=== PATIENT | male | born 1980 | race Caucasian/White ===

== ENCOUNTER 2021-03-03 12:21 | Emergency (ER) | payer OTHER ==
[2021-03-03] MEDS ORDERED: CLINDAMYCIN 600MG/D5W 600 MG/50 ML BAG IV ONE (15:58)
[2021-03-03] MEDS ORDERED: VANCOMYCIN 1 GM/VIAL ONE (15:58)
[2021-03-03] MEDS ORDERED: NA CHLORIDE 0.9% 250 ML ONE (16:32)
[2021-03-03 16:44] LABS: Absolute Lymphocytes (CBC) 1.8 K/uL (0.7-4.9); Basophils % 1.3 % (0-1.3); Hematocrit 45.5 % (39.6-49.0); Lymphocytes % 27.3 % (15.3-44.8); MPV 7.7 fL (7.6-11.3); RBC Red Blood Cell Count 4.93 M/uL (4.33-5.43)
[2021-03-03 16:49] LABS: ALT/SGPT 48 U/L (12-78); AST/SGOT 38 U/L (15-37); Albumin 3.9 g/dL (3.4-5.0); Alkaline Phosphatase 83 U/L (45-117); BUN Blood Urea Nitrogen 14 mg/dL (7-18); Bicarbonate 28 mmol/L (21-32); Bilirubin Total 0.2 mg/dL (0.2-1.0); Glucose Level 99 mg/dL (74-106); Potassium 3.7 mmol/L (3.5-5.1); Protein, Total 7.9 g/dL (6.4-8.2); Sodium Level 141 mmol/L (136-145)
--- NOTE | 2021-03-03 18:28 | ER ---
Nurse's Notes [facility] Name: Jerry Melchor Age: 40 yrs Sex: Male : 1980 Arrival Date: 03/03/2021 Time: 12:25 Bed 15 Private MD: Diagnosis: Methicillin resistant Staphylococcus aureus infection, unspecified site Presentation: 03/03 12:59 Chief complaint: Patient states: Had swab done last week for a staph infection. Was ca1 called by my doctor today and instructed to come in the ER to start IV antinbiotics. Coronavirus screen: Client denies travel out of the [place] in the last 14 days. At this time, the client does not indicate any symptoms associated with coronavirus-19. Ebola Screen: Patient negative for fever greater than or equal to 101.5 degrees Fahrenheit, and additional compatible Ebola Virus Disease symptoms Patient denies exposure to infectious person. Patient denies travel to an Ebola-affected area in the 21 days before illness onset. No symptoms or risks identified at this time. Initial Sepsis Screen: Does the patient meet any 2 criteria? No. Patient's initial sepsis screen is negative. Does the patient have a suspected source of infection? No. Patient's initial sepsis screen is negative. Risk Assessment: Do you want to hurt yourself or someone else? Patient reports no desire to harm self or others. Onset of symptoms was March 03, 2021. 12:59 Method Of Arrival: Ambulatory ca1 12:59 Acuity: EMILY 3 ca1 Triage Assessment: 15:11 General: Appears in no apparent distress. Behavior is calm, cooperative, appropriate tr6 for age. Pain:. 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 Flu vaccine is not up to date. - Social history:: Smoking status: Patient reports the use of cigarette tobacco products, smokes one pack cigarettes per day. Patient/guardian denies using alcohol, street drugs, The patient lives with family. - Family history:: not pertinent. Screenin:01 Abuse screen: Denies threats or abuse. Denies injuries from another. Nutritional tr6 screening: No deficits noted. Tuberculosis screening: No symptoms or risk factors identified. Fall Risk None identified. Assessment: 15:00 General: Appears in no apparent distress. comfortable, well groomed, Behavior is calm, tr6 cooperative, appropriate for age, Denies fever, feeling ill, fatigue, chills. Pain: Complains of pain in inside left nostril. pt reports he had an ingrown hair that he tried to pluck out and it got infected. Neuro: No deficits noted. Cardiovascular: No deficits noted. Respiratory: No deficits noted. GI: No deficits noted. : No deficits noted. EENT: Nares with drainage noted on left. Derm: No deficits noted. Musculoskeletal: No deficits noted. 15:10 Reassessment: MD Patterson at bedside. tr6 17:17 Reassessment: pt OOB to bathroom independently. tr6 18:30 Reassessment: Patient appears in no apparent distress at this time. No changes from tr6 previously documented assessment. Patient is alert, oriented x 3, equal unlabored respirations, skin warm/dry/pink. pt in no distress. IV antibiotics completed. pending discharge paperwork. Vital Signs: 12:59 BP 132 / 85; Pulse 87; Resp 16 S; Temp 97.1(TE); Pulse Ox 99% on R/A; Weight 82.55 kg ca1 (R); Height 6 ft. 1 in. (185.42 cm) (R); Pain 6/10; 17:12 BP 126 / 82; Pulse 68; Resp 12; Pulse Ox 100% ; tr6 12:59 Body Mass Index 24.01 (82.55 kg, 185.42 cm) ca1 ED Course: 12:25 Patient arrived in ED. ds1 13:03 Triage completed. ca1 13:03 Arm band placed on right wrist. ca1 15:01 Domenica Cohen, CINTHYA is Primary Nurse. tr6 15:01 Debbie Patterson MD is Attending Physician. ma2 15:10 Patient has correct armband on for positive identification. Bed in low position. Call tr6 light in reach. Side rails up X 1. Pulse ox on. NIBP on. Door closed. Warm blanket given. 15:46 No provider procedures requiring assistance completed. tr6 15:46 Inserted saline lock: 18 gauge in right antecubital area, using aseptic technique. tr6 17:33 CMP Sent. sv 17:33 CBC with Diff Sent. sv 18:31 IV discontinued, intact, bleeding controlled, No redness/swelling at site. Pressure tr6 dressing applied. Administered Medications: 15:44 Drug: Clindamycin 600 mg Route: IVPB; Infused Over: 30 mins; Site: right antecubital; tr6 18:30 Follow up: IV Status: Completed infusion; IV Intake: 50ml tr6 16:23 Drug: vancoMYCIN 1 grams Route: IVPB; Infused Over: 2 hrs; Site: right antecubital; pm1 18:31 Follow up: Response: No adverse reaction; IV Status: Completed infusion; IV Intake: tr6 250ml Intake: 18:30 IV: 50ml; Total: 50ml. tr6 18:31 IV: 250ml; Total: 300ml. tr6 Outcome: 18:27 Discharge ordered by . ma2 18:31 Discharged to home ambulatory. tr6 18:31 Condition: good 18:31 Discharge instructions given to patient, Instructed on discharge instructions, follow up and referral plans. no drinking with medication, medication usage, safety practices, Demonstrated understanding of instructions, follow-up care, medications. 18:39 Patient left the ED. tr6 Signatures: Lexy Mabry RN RN Trupti Lindsey ds1 Chance Mas NP ERP MANAGER pm1 Debbie Patterson MD MD ma2 Acob, Cheryl, RN RN Domenica Jason RN RN tr6
--- NOTE | 2021-03-03 18:28 | EDPHYS ---
Physician Documentation [facility] Name: Jerry Melchor Age: 40 yrs Sex: Male : 1980 Arrival Date: 03/03/2021 Time: 12:25 Bed 15 Private MD: ED Physician Debbie Patterson HPI: 03/03 15:29 This 40 yrs old Male presents to ER via Ambulatory with complaints of ma2 Abnormal Lab Results. 15:29 Onset: The symptoms/episode began/occurred gradually, 6 day(s) ago. Associated signs ma2 and symptoms: Pertinent negatives: chest pain, ear ache, lightheadedness. Severity of symptoms: At their worst the symptoms were very mild in the emergency department the symptoms have improved. patient has ingrowing nasal hair that was swapped and cultured and grew mrsa that is sensitive to vancomycin and clindamycin. He was sent here by his CONTINUOUS IMPROVEMENT DIRECTOR for IV antibiotics. of note he did not fail outpatient management as he has received cipro/erythromycine and both are resistant. despite that, his symptoms has improved and he has no fever or any other symptoms. his exam is unremarkable . 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 Flu vaccine is not up to date. - Social history:: Smoking status: Patient reports the use of cigarette tobacco products, smokes one pack cigarettes per day. Patient/guardian denies using alcohol, street drugs, The patient lives with family. - Family history:: not pertinent. ROS: 15:29 Constitutional: Negative for fever, chills, and weight loss. ma2 15:29 All other systems are negative. Exam: 15:29 Constitutional: This is a well developed, well nourished patient who is awake, alert, ma2 and in no acute distress. Head/Face: Normocephalic, atraumatic. Eyes: Pupils equal round and reactive to light, extra-ocular motions intact. Lids and lashes normal. Conjunctiva and sclera are non-icteric and not injected. Cornea within normal limits. Periorbital areas with no swelling, redness, or edema. ENT: Nares patent. No nasal discharge, no septal abnormalities noted. Tympanic membranes are normal and external auditory canals are clear. Oropharynx with no redness, swelling, or masses, exudates, or evidence of obstruction, uvula midline. Mucous membranes moist. Neck: Trachea midline, no thyromegaly or masses palpated, and no cervical lymphadenopathy. Supple, full range of motion without nuchal rigidity, or vertebral point tenderness. No Meningismus. Chest/axilla: Normal chest wall appearance and motion. Nontender with no deformity. No lesions are appreciated. Cardiovascular: Regular rate and rhythm with a normal S1 and S2. No gallops, murmurs, or rubs. Normal PMI, no JVD. No pulse deficits. Respiratory: Lungs have equal breath sounds bilaterally, clear to auscultation and percussion. No rales, rhonchi or wheezes noted. No increased work of breathing, no retractions or nasal flaring. Abdomen/GI: Soft, non-tender, with normal bowel sounds. No distension or tympany. No guarding or rebound. No evidence of tenderness throughout. MS/ Extremity: Pulses equal, no cyanosis. Neurovascular intact. Full, normal range of motion. Neuro: Awake and alert, GCS 15, oriented to person, place, time, and situation. Cranial nerves II-XII grossly intact. Motor strength 5/5 in all extremities. Sensory grossly intact. Cerebellar exam normal. Normal gait. Vital Signs: 12:59 BP 132 / 85; Pulse 87; Resp 16 S; Temp 97.1(TE); Pulse Ox 99% on R/A; Weight 82.55 kg ca1 (R); Height 6 ft. 1 in. (185.42 cm) (R); Pain 6/10; 17:12 BP 126 / 82; Pulse 68; Resp 12; Pulse Ox 100% ; tr6 12:59 Body Mass Index 24.01 (82.55 kg, 185.42 cm) ca1 MDM: 15:06 Patient medically screened. ma2 15:29 Differential diagnosis: sinusitis, cellulitis, mrsa. Data reviewed: vital signs, nurses ma2 notes. Counseling: I had a detailed discussion with the patient and/or guardian regarding: the historical points, exam findings, and any diagnostic results supporting the discharge/admit diagnosis, the presence of at least one elevated blood pressure reading (>120/80) during this emergency department visit, the need for outpatient follow up. Response to treatment: the patient's symptoms have markedly improved after treatment. 03/03 15:27 Order name: CBC with Diff ma2 03/03 15:27 Order name: CMP ma2 03/03 15:28 Order name: CBC with Automated Diff; Complete Time: 17:33 EDMS 03/03 15:28 Order name: Comprehensive Metabolic Panel; Complete Time: 17:33 EDMS 03/03 15:27 Order name: IV Start; Complete Time: 15:45 ma2 Administered Medications: 15:44 Drug: Clindamycin 600 mg Route: IVPB; Infused Over: 30 mins; Site: right antecubital; tr6 18:30 Follow up: IV Status: Completed infusion; IV Intake: 50ml tr6 16:23 Drug: vancoMYCIN 1 grams Route: IVPB; Infused Over: 2 hrs; Site: right antecubital; pm1 18:31 Follow up: Response: No adverse reaction; IV Status: Completed infusion; IV Intake: tr6 250ml Disposition: 03/03/21 18:27 Discharged to Home. Impression: Methicillin resistant Staphylococcus aureus infection, unspecified site. - Condition is Stable. - Discharge Instructions: Community-Associated MRSA, Antibiotic Medicine, Liio-em-Pcuk. - Prescriptions for Clindamycin HCl 300 mg Oral Capsule - take 1 capsule by ORAL route every 6 hours for 10 days; 40 capsule. - Medication Reconciliation Form, Thank You Letter, Antibiotic Education, Prescription Opioid Use form. - Follow up: Private Physician; When: Tomorrow; Reason: If symptoms return. Signatures: [facility] Chance Mas NP CONTINUOUS IMPROVEMENT DIRECTOR pm1 Debbie Patterson MD MD ma2 Julissa Braga RN RN ca1 Domenica Cohen RN RN tr6 Corrections: (The following items were deleted from the chart) 18:39 18:27 03/03/2021 18:27 Discharged to Home. Impression: Methicillin resistant tr6 Staphylococcus aureus infection, unspecified site. Condition is Stable. Discharge Instructions: Community-Associated MRSA, Antibiotic Medicine, [id number]. Prescriptions for Clindamycin HCl 300 mg Oral Capsule - take 1 capsule by ORAL route every 6 hours for 10 days; 40 capsule. and Forms are Medication Reconciliation Form, Thank You Letter, Antibiotic Education, Prescription Opioid Use. Follow up: Private Physician; When: Tomorrow; Reason: If symptoms return. ma2
[2021-03-03 19:16] VITALS: TEMP 97.1
[2021-03-03 19:18] VITALS: BP 126/82; O2SAT 100
== END 2021-03-03 18:39 | disposition home or self-care (01) ==
LOC: ER 12:21
DX: A49.02 Methicillin resistant Staphylococcus aureus infection, unspecified site (principal); F17.210 Nicotine dependence, cigarettes, uncomplicated
CPT/HCPCS: 85025; 36415; 80053; J3370; J7050; 96365; 96366; 99284

== ENCOUNTER 2021-03-22 11:46 | Emergency (ER) | payer OTHER ==
[2021-03-22 14:24] LABS: Absolute Lymphocytes (CBC) 1.5 K/uL (0.7-4.9); Basophils % 0.6 % (0-1.3); Lymphocytes % 22.6 % (15.3-44.8); MPV 7.4 fL (7.6-11.3); RBC Red Blood Cell Count 4.63 M/uL (4.33-5.43)
--- NOTE | 2021-03-22 14:33 | RAD REPORT ---
EXAM DESCRIPTION: CT - CTFB CLINICAL HISTORY: FACIAL PAIN Pain, swelling, bleeding COMPARISON: No comparisons TECHNIQUE: Axial 2 mm thick images of the face were obtained with sagittal and coronal reconstructio n images. All CT scans are performed using dose optimization technique as appropriate and may include automated exposure control or mA/KV adjustment according to patient size. FINDINGS: No acute facial bone fracture is seen.The mandible is intact. Nasal airway has a normal ap pearance. The globes and orbital contents are grossly unremarkable.The paranasal sinuses and mastoids are essen tially clear, except for right frontal recess obstruction with mucus. Normal skull base. IMPRESSION: Mucosal obstruction of the right frontal recess, otherwise unremarkable study.
[2021-03-22 14:42] LABS: ALT/SGPT 41 U/L (12-78); AST/SGOT 28 U/L (15-37); Albumin 3.7 g/dL (3.4-5.0); Alkaline Phosphatase 79 U/L (45-117); BUN Blood Urea Nitrogen 15 mg/dL (7-18); Bicarbonate 26 mmol/L (21-32); Bilirubin Total 0.2 mg/dL (0.2-1.0); Glucose Level 113 mg/dL (74-106); Potassium 3.7 mmol/L (3.5-5.1); Protein, Total 7.4 g/dL (6.4-8.2); Sodium Level 142 mmol/L (136-145)
--- NOTE | 2021-03-22 15:51 | ER ---
Nurse's Notes [facility] Name: Jerry Melchor Age: 40 yrs Sex: Male : 1980 Arrival Date: 03/22/2021 Time: 11:49 Bed 20 Private MD: Diagnosis: Mucosal obstruction right frontal recess Presentation: 03/22 12:06 Chief complaint: Patient states: "I have trouble with my nose and lately it's been aa5 running, bleeding sometimes, it feels like my septum is swollen and I haven't been able to get into an ENT doctor". Coronavirus screen: runny nose. Ebola Screen: Patient negative for fever greater than or equal to 101.5 degrees Fahrenheit, and additional compatible Ebola Virus Disease symptoms. Initial Sepsis Screen: Does the patient meet any 2 criteria? No. Patient's initial sepsis screen is negative. Does the patient have a suspected source of infection? No. Patient's initial sepsis screen is negative. Risk Assessment: Do you want to hurt yourself or someone else? Patient reports no desire to harm self or others. Onset of symptoms was 2020. 12:06 Method Of Arrival: Ambulatory aa5 12:06 Acuity: EMILY 4 aa5 Historical: - Allergies: 12:07 NKA; aa5 - PMHx: 12:07 MRSA; aa5 - PSHx: 12:07 None; aa5 - Immunization history:: Adult Immunizations unknown. - Social history:: Smoking status: Patient reports the use of cigarette tobacco products, smokes one-half pack cigarettes per day. Vital Signs: 12:06 BP 137 / 72; Pulse 89; Resp 20 S; Temp 98.9(O); Pulse Ox 99% on R/A; Weight 83.46 kg aa5 (R); Height 6 ft. 1 in. (185.42 cm) (R); 12:06 Body Mass Index 24.28 (83.46 kg, 185.42 cm) aa5 ED Course: 11:49 Patient arrived in ED. rg4 12:05 Arm band placed on. aa5 12:07 Triage completed. aa5 13:14 Domenica Cohen RN is Primary Nurse. tr6 13:33 Chance Mas NP is PHCP. pm1 13:33 Binu Britt MD is Attending Physician. pm1 14:14 Inserted saline lock: 20 gauge in left forearm, using aseptic technique. Blood mt collected. 14:20 CT Facial Bones W/O Con In Process Unspecified. EDMS Administered Medications: No medications were administered Outcome: 15:50 Discharge ordered by . pm1 16:01 Patient left the ED. tr6 Signatures: Dispatcher [employer] EDMS Denia Wood RN RN aa5 Chance Mas NP SHANK CUTTER pm1 Renate Tomas 4 Mary Sneed mt, Tiffany, RN RN tr6 Corrections: (The following items were deleted from the chart) 12:08 12:06 Chief complaint: Patient states: "I have trouble with my nose and lately it's aa5 been running, bleeding sometimes, and I haven't been able to get into an ENT doctor" aa5
--- NOTE | 2021-03-22 15:51 | EDPHYS ---
Physician Documentation [facility] Name: Jerry Melchor Age: 40 yrs Sex: Male : 1980 Arrival Date: 03/22/2021 Time: 11:49 Bed 20 Private MD: DECLAN Physician Binu Britt HPI: 03/22 14:03 This 40 yrs old Male presents to ER via Ambulatory with complaints of Nose pm1 Problem. 14:03 The patient presents with a nose bleed, occasional nose bleeds that is currently pm1 resolved, nasal drainage, clear. Onset: The symptoms/episode began/occurred 3 week(s) ago. Modifying factors: The symptoms are alleviated by antibiotic therapy, the symptoms are aggravated by nothing. Associated signs and symptoms: Pertinent negatives: fever. Severity of symptoms: in the emergency department the symptoms have improved. The patient has not recently seen a physician. Patient was seen for by his PCP for swelling an redness to his nose and was then sent to the ER for treatment once culture results were obtained. On 03/03 the patient was prescribed clindamycin. Patient followed up with his PCP and was then prescribed rifampin which he completed yesterday. Patient is presenting to the ER for further evaluation because he has not been able to schedule an appointment with ENT. The earliest he can see ENT is the end of April. Historical: - Allergies: 12:07 NKA; aa5 - PMHx: 12:07 MRSA; aa5 - PSHx: 12:07 None; aa5 - Immunization history:: Adult Immunizations unknown. - Social history:: Smoking status: Patient reports the use of cigarette tobacco products, smokes one-half pack cigarettes per day. ROS: 14:03 Constitutional: Negative for fever, chills, and weight loss, Eyes: Negative for injury, pm1 pain, redness, and discharge. 14:03 Neck: Negative for injury, pain, and swelling, Cardiovascular: Negative for chest pain, palpitations, and edema, Respiratory: Negative for shortness of breath, cough, wheezing, and pleuritic chest pain, Abdomen/GI: Negative for abdominal pain, nausea, vomiting, diarrhea, and constipation, MS/Extremity: Negative for injury and deformity, Skin: Negative for injury, rash, and discoloration, Neuro: Negative for headache, weakness, numbness, tingling, and seizure. 14:03 ENT: Positive for nasal discharge, nose bleed, Negative for ear pain, sore throat, difficulty swallowing, difficulty handling secretions, hoarseness. 14:03 All other systems are negative. Exam: 14:03 Constitutional: This is a well developed, well nourished patient who is awake, alert, pm1 and in no acute distress. Head/Face: Normocephalic, atraumatic. 14:03 Skin: Warm, dry with normal turgor. Normal color with no rashes, no lesions, and no evidence of cellulitis. MS/ Extremity: Pulses equal, no cyanosis. Neurovascular intact. Full, normal range of motion. 14:03 Eyes: Exam is negative for acute changes, Extraocular movements: intact throughout, Conjunctiva: no acute changes. 14:03 ENT: External ear(s): are unremarkable, Ear canal(s): are normal, TM's: are normal, Nose: External nose: no obvious acute abnormality, Nasal septum: is midline, Nasal mucosa: edematous, intact, moist, bleeding, is not appreciated, clotted blood, is not appreciated, nasal drainage, is not appreciated, a foreign body, is not appreciated. 14:03 Cardiovascular: Rate: normal, Rhythm: regular, Pulses: no pulse deficits are appreciated. 14:03 Respiratory: Exam negative for acute changes, respiratory distress, shortness of breath. 14:03 Neuro: Orientation: is normal, Mentation: is normal, Motor: is normal, moves all fours. Vital Signs: 12:06 BP 137 / 72; Pulse 89; Resp 20 S; Temp 98.9(O); Pulse Ox 99% on R/A; Weight 83.46 kg aa5 (R); Height 6 ft. 1 in. (185.42 cm) (R); 12:06 Body Mass Index 24.28 (83.46 kg, 185.42 cm) aa5 MDM: 13:38 Patient medically screened. tg 15:48 Data reviewed: vital signs. Data interpreted: Pulse oximetry: on room air is 99 %. pm1 Interpretation: normal. Counseling: I had a detailed discussion with the patient and/or guardian regarding: the historical points, exam findings, and any diagnostic results supporting the discharge/admit diagnosis, lab results, radiology results, the need for outpatient follow up, for definitive care, an ENT specialist, to return to the emergency department if symptoms worsen or persist or if there are any questions or concerns that arise at home. 03/22 14:02 Order name: CBC with Diff; Complete Time: 15:14 pm1 03/22 14:02 Order name: CMP; Complete Time: 15:14 pm1 03/22 14:02 Order name: CT Facial Bones W/O Con; Complete Time: 15:14 pm1 Administered Medications: No medications were administered Disposition: 03/22/21 15:50 Discharged to Home. Impression: Mucosal obstruction right frontal recess. - Condition is Stable. - Medication Reconciliation Form, Thank You Letter, Antibiotic Education, Prescription Opioid Use form. - Follow up: Emergency Department; When: As needed; Reason: Worsening of condition. Follow up: Private Physician; When: 2 - 3 days; Reason: Recheck today's complaints, Continuance of care, Re-evaluation by your physician. - Problem is new. - Symptoms have improved. - Notes: Continue using your bactroban nasally and follow up with ENT Addendum: 03/25/2021 07:42 Co-signature as Attending Physician, Binu Britt MD I agree with the assessment and c rivera plan of care. Signatures: Dispatcher [employer] EDCO Binu Britt MD MD cha Calderon, Audri, RN RN aa5 Chance Mas NP SEAMER PANTY HOSE pm1 Domenica Cohen RN RN tr6 Corrections: (The following items were deleted from the chart) 03/22 16:01 15:50 03/22/2021 15:50 Discharged to Home. Impression: Mucosal obstruction right tr6 frontal recess. Condition is Stable. Forms are Medication Reconciliation Form, Thank You Letter, Antibiotic Education, Prescription Opioid Use. Follow up: Emergency Department; When: As needed; Reason: Worsening of condition. Follow up: Private Physician; When: 2 - 3 days; Reason: Recheck today's complaints, Continuance of care, Re-evaluation by your physician. Problem is new. Symptoms have improved. pm1
[2021-03-22 16:23] VITALS: BP 137/72; TEMP 98.9; O2SAT 99
== END 2021-03-22 16:01 | disposition home or self-care (01) ==
LOC: ER 11:46
DX: J34.89 Other specified disorders of nose and nasal sinuses (principal); F17.210 Nicotine dependence, cigarettes, uncomplicated
CPT/HCPCS: 36415; 70486; 76377; 80053; 85025; 99283